=== PATIENT | female | born 1945 | race Asian ===

== ENCOUNTER 2017-09-07 11:36 | Day surgery (SDC) | payer OTHER ==
[2017-09-07 12:42] VITALS: BMI 28.7
[2017-09-07] MEDS ORDERED: PROPOFOL 20 ML ONE (13:11)
[2017-09-07] MEDS ORDERED: LIDOCAINE HCL/PF 2% SDV 5ML VIAL ONE (13:11)
[2017-09-07 13:44] VITALS: TEMP 98.1
[2017-09-07 14:09] VITALS: BP 137/83; PULSE 67
--- NOTE | 2017-09-11 16:08 | PATH ---
Surgical Pathology Report Patient Name: ALEXIS RANDHAWA [facility] Rec. #: [id number] /Age/Gender: 1945 (Age: 72) / F Account: [id number] Location: U-ENDOSCOPY Taken: 09/07/2017 Received: 09/10/2017 Reported: 09/11/2017 Physicians: Adilia Mccoy M.D. Specimen(s) Received A: BX 2ND PORTION DUODENUM AND BULB B: BX ANTRUM Clinical History Abdominal pain, vomiting Postoperative diagnosis: Gastritis Final Diagnosis A. SECOND PORTION DUODENUM AND BULB, BIOPSY: DUODENAL MUCOSA WITH NO PATHOLOGIC FINDINGS. B. ANTRUM, BIOPSY: MILD CHRONIC GASTRITIS. IMMUNOSTAINS NEGATIVE FOR H. PYLORI ORGANISMS. Electronically Signed Wendy Stock M.D. Gross Description A. Received in formalin, labeled "biopsy second portion of duodenum and bulb" are 3 gunn, irregular portions of soft tissue ranging from 0.4-0.5 cm in greatest dimension. The specimens are submitted in toto in one cassette. B. Received in formalin, labeled with the patient's name and indicated on the requisition to be an antrum biopsy, are 2 gunn, irregular portions of soft tissue measuring 0.2 and 0.6 cm. in greatest dimension. The specimens are submitted in toto in one cassette. 09/10/201709/10/2017
== END 2017-09-07 14:40 | disposition home or self-care (01) ==
LOC: JASU-ENDO 11:36
PROVIDERS: ATTEND Internal Medicine Gastroenterology
PROC: 0DB68ZX Excision of Stomach, Via Natural or Artificial Opening Endoscopic, Diagnostic (ICD-10-PCS; 2017-09-07)
PROC: 0DB98ZX Excision of Duodenum, Via Natural or Artificial Opening Endoscopic, Diagnostic (ICD-10-PCS; principal; 2017-09-07 12:45)
DX: K29.70 Gastritis, unspecified, without bleeding (principal); E11.9 Type 2 diabetes mellitus without complications; Z79.84 Long term (current) use of oral hypoglycemic drugs
CPT/HCPCS: 82962; 88305-TC; 88342-TC

== ENCOUNTER 2017-10-29 11:47 | Day surgery (SDC) | payer OTHER ==
[2017-10-26 10:35] VITALS: BMI 28.7
[2017-10-29] MEDS ORDERED: fentaNYL CITRATE 250 MCG/5 ML VIAL ONE (14:57)
[2017-10-29] MEDS ORDERED: ROCURONIUM BROMIDE 50 MG/5 ML VIAL ONE (14:57)
[2017-10-29] MEDS ORDERED: MIDAZOLAM HCL 2 MG/2 ML SINGLE DOSE VIAL ONE (14:58)
[2017-10-29] MEDS ORDERED: PROPOFOL 20 ML ONE (14:58)
[2017-10-29] MEDS ORDERED: LIDOCAINE HCL/PF 2% SDV 5ML VIAL ONE (14:59)
[2017-10-29] MEDS ORDERED: DEXAMETHASONE SOD PHOSPHATE 4 MG/1 ML VIAL ONE (14:59)
[2017-10-29] MEDS ORDERED: VASOPRESSIN 20 UNITS/ML VIAL IV ONE (15:45)
[2017-10-29] MEDS ORDERED: ceFAZolin SODIUM 1 GM VIAL IVPB ONE (16:05)
[2017-10-29] MEDS ORDERED: ceFAZolin SODIUM 1 GM VIAL ONE (16:09)
[2017-10-29] MEDS ORDERED: FUROSEMIDE 40 MG/4 ML INJECTABLE VIAL ONE (16:28)
[2017-10-29] MEDS ORDERED: GLYCOPYRROLATE 0.2 MG/1 ML VIAL ONE (16:51)
[2017-10-29] MEDS ORDERED: NEOSTIGMINE METHYLSULFATE 0.5 MG/ML - 10 ML MDV ONE (16:51)
[2017-10-29] MEDS ORDERED: oxyCODONE HCL 5 MG TABLET PO PRN (17:07)
[2017-10-29] MEDS ORDERED: ONDANSETRON 4 MG/2 ML VIAL IVPUSH PRN (17:07)
[2017-10-29] MEDS ORDERED: LACTATED RINGERS SOLUTION 1,000 ML IV SCH (17:15)
[2017-10-29] MEDS ORDERED: ONDANSETRON 4 MG/2 ML VIAL ONE ×2 (18:25→19:19)
[2017-10-29 19:15] VITALS: TEMP 97.4
[2017-10-29] MEDS ORDERED: ONDANSETRON 4 MG/2 ML VIAL IVPUSH ONE (19:30)
[2017-10-29 20:58] VITALS: BP 146/77; PULSE 89
--- NOTE | 2017-10-30 06:47 | OP ---
DATE OF OPERATION: 10/29/2017 PREOPERATIVE DIAGNOSES: Grade 3 vaginal wall prolapse, grade 3 cystocele. POSTOPERATIVE DIAGNOSES: Grade 3 vaginal wall prolapse, grade 3 cystocele. PROCEDURE PERFORMED: Transvaginal suspension of the vagina bilateral to the prespinous fascia of the iliococcygeus muscle, anterior colporrhaphy, and cystoscopy. PRIMARY SURGEON: Corbin Cruz MD DESCRIPTION OF PROCEDURE: After adequate anesthesia, patient was prepped and draped in dorsal lithotomy position. A dilute solution of Pitressin was injected throughout the entire vaginal epithelium. The back wall of the vagina was well supported. A vertical incision was made over the anterior vaginal wall. Perivesical fascia dissected away, plicated onto itself using 0 Vicryl sutures in circumferential stitch x2 layers. The anterior vaginal wall was then closed using 2-0 Vicryl suture in continuous fashion. A [id number] stitch of 0 PDS was then placed through the vagina into the prespinous fascia of the iliococcygeus muscle, and then back out the vagina and tied. This was done bilaterally. Rectal examination was negative for any foreign bodies. Cystoscopy was performed to note no fibroids in the bladder and fluorescein dye emanating from both ureteral orifices. The bladder was drained. Martin was inserted. The introitus would accommodate the surgeon's 2 fingers easily with no stenosis noted. There was good posterior descent of the vagina through the hollow of the sacrum. Hong [id number]
== END 2017-10-29 21:02 | disposition home or self-care (01) ==
LOC: JASUSAT 11:47 → JASU-SURG 11:47 → EDSTATUS 14:30 → JASUSAT 21:02
PROVIDERS: ATTEND Obstetrics & Gynecology Female Pelvic Medicine and Reconstructive Surgery
PROC: 0JQC0ZZ Repair Pelvic Region Subcutaneous Tissue and Fascia, Open Approach (ICD-10-PCS; 2017-10-29)
PROC: 0TJB8ZZ Inspection of Bladder, Via Natural or Artificial Opening Endoscopic (ICD-10-PCS; 2017-10-29)
PROC: 0USG7ZZ Reposition Vagina, Via Natural or Artificial Opening (ICD-10-PCS; principal; 2017-10-29 14:30)
DX: N81.10 Cystocele, unspecified (principal); E11.9 Type 2 diabetes mellitus without complications; Z79.84 Long term (current) use of oral hypoglycemic drugs
CPT/HCPCS: 82962; 94760

== ENCOUNTER 2019-08-28 09:08 | Inpatient (IN) | payer OTHER ==
--- NOTE | 2019-08-28 09:21 | PDOC ---
Rapid Medical Evaluation Time Seen by Provider: 08/28/19 09:13 Medical Evaluation: Allergies Allergy/AdvReac Type Severity Reaction Status Date / Time influenza virus vaccine, Allergy Verified 10/29/17 12:41 specific [influenza virus vacc,specific] 08/28/19 09:19 I performed a brief in-person evaluation of this patient. Pt is a 74 y/o male who presents to the ED with complaint of lower abdominal pain/suprapubic pain for the last 1 week. She denies any dysuria, frequency, urgency. She does admit to some low back pain. She has a h/o DM, recurrent UTIs, HTN, HLD, hysterectomy. She denies fevers or chills. She had COVID in April and was subsequently tested negative. Pertinent physical exam findings: nontoxic, speaking in full sentences, no acute distress I have ordered the following: labs, saline lock Patient to proceed to ED for further evaluation. 08/28/19 09:21 Discharge Disposition - Diagnosis Abdominal pain - Referrals - Patient Instructions - Post Discharge Activity
--- NOTE | 2019-08-28 09:56 | PDOC ---
History of Present Illness - General Chief Complaint: Pain Stated Complaint: LWR ABD PAIN Time Seen by Provider: 08/28/19 09:13 History Source: Patient Exam Limitations: No Limitations - History of Present Illness Initial Comments: 08/28/19 09:55 HPI 74 YOF with h/o DM, HTN, HLD, RA presenting with lower abdominal pain x 1 week, associated with decreased appetite and nausea. lower abdominal pain is described as "heavy" sensation, radiating to the lower back. worse with movement, improved with rest. with movement, AP increases to 7-8/10. only took tylenol last night, with some relief. no trauma +constipation, last BM yesterday. +flatus. no bloody stools. Denies fever, chills, chest pain, SOB, palpitation, dizziness, weakness, diarrhea, bladder and bowel problems, focal weakness/paresthesias, leg swelling/pain, rash. No sick contacts or travel. No new changes in medications. No suspicious food intake +recent covid 19 infection, in April 2019, recovered. Allergies: None Past Medical History: DM, HTN, HLD PSH: hysterectomy Social history: Lives with family. No tobacco, ETOH or drug use. Meds: as documented in EMR Family history: noncontributory PMD: Magaly Medina MD [Staff Physician] - Review of systems Constitutional: no fevers or chills. No weakness HEENT: no headache or dizziness. No congestion. No visual/hearing disturbances. CVS: no cp or syncope. Resp: no sob. No cough. Gastrointestinal: No vomiting, diarrhea. +abdominal pain and nausea Genitourinary: no urinary sx, hematuria. MUSCULOSKELETAL: No joint pain and swelling. No neck pain. +back pain. SKIN: no redness or skin changes, no discharge, no rash. No wounds. Hematologic: no easy bruising/bleeding. NEUROLOGIC: No headache, dizziness, LOC or altered mental status. No weakness, numbness or tingling. Psych: no anxiety or depression Endo: +diabetes mellitus Allergic/Immunologic: no allergies All other systems reviewed and negative, or as documented in HPI. Physical exam General: Well appearing, awake and alert, NAD. HEENT: NCAT, PERRL, EOMI, clear conjunctiva, anicteric, moist mucus membranes, clear oropharynx, no oral lesions.. Neck: neck supple, FROM Resp: CTAB, normal and even respirations, no respiratory distress CVS: RRR, no murmurs, 2+ peripheral pulses throughout, no peripheral edema Abdomen: soft, nondistended. +LLQ Tenderness,no rebound or guarding. Back: nontender, normal inspection and ROM MSK: no edema, HICKMAN x4, ROM intact. No clubbing or cyanosis. normal bulk and to ne. Extremities: no calf tenderness Neuro: alert, oriented appropriately; no focal neurologic deficits Psych: Calm and cooperative Skin: warm and well perfused, cap refill <2 sec, normal color, no rash or skin discoloration. 08/28/19 09:57 Past History - Medical History Allergies/Adverse Reactions: Allergies Allergy/AdvReac Type Severity Reaction Status Date / Time influenza virus vaccine, Allergy Verified 08/28/19 09:21 specific [influenza virus vacc,specific] Home Medications: Ambulatory Orders Calcium Carbonate/Vitamin D3 [Calcium 600+D Softgel] 1 cap PO DAILY 09/07/17 Cholecalciferol (Vitamin D3) [Vitamin D -] 1,000 unit PO DAILY 09/07/17 Glucosamine HCl/Chondroitin John [Cvs Glucosamine-Chondroitin Cp] 1 cap PO DAILY 09/07/17 Losartan Potassium 100 mg PO DAILY 09/07/17 Mag Carb/Aluminum Hydrox/Algin [Gaviscon Liquid] 30 ml PO Q4H PRN #30 oz 09/07/17 Omega3,5,6,7,9 No.1/[place] Oil [Complete [place] Softgel] 1 each PO DAILY 09/07/17 Ranitidine [Zantac -] 150 mg PO BID #180 tablet 09/07/17 Sitagliptin Phos/Metformin HCl [Janumet Xr 50-1,000 mg Tablet] 1 each PO BID 09/07/17 Solifenacin Succinate [Vesicare -] 5 mg PO DAILY 09/07/17 Atorvastatin Ca [Lipitor] 20 mg PO DAILY 10/26/17 Glyburide 5 mg PO DAILY 10/26/17 Anemia: No Asthma: No Cancer: No Cardiac Disorders: No CVA: No COPD: No CHF: No Dementia: No Diabetes: Yes (NIDDM,DIABETIC NEUROPATHY) GI Disorders: Yes Disorders: Yes (UTI'S) HTN: Yes Hypercholesterolemia: Yes Liver Disease: No Seizures: No Thyroid Disease: No - Surgical History Appendectomy: No Cardiac Surgery: No Cholecystectomy: No Lung Surgery: No Neurologic Surgery: No Orthopedic Surgery: No - Psycho-Social/Smoking History Smoking History: Never smoked Have you smoked in the past 12 months: No Information on smoking cessation initiated: No - Substance Abuse Hx (Audit-C & DAST Scrn) How often the patient has a drink containing alcohol: Never Score: In Men: 4 or > Positive; In Women: 3 or > Positive: 0 Screen Result (Pos requires Nsg. Audit-10AR): Negative In the last yr the pt used illegal drug/Rx for NonMed reason: No Score: Yes response is considered Positive: 0 Screen Result (Positive result requires Nsg. DAST-10): Negative *Physical Exam - Vital Signs Last Vital Signs Temp Pulse Resp BP Pulse Ox 99.6 F 87 17 115/59 L 100 08/28/19 09:18 08/28/19 09:18 08/28/19 09:18 08/28/19 09:18 08/28/19 09:18 ED Treatment Course - LABORATORY CBC & Chemistry Diagram: 08/28/19 09:45 08/28/19 09:45 Medical Decision Making - Medical Decision Making 08/28/19 10:00 Vital Signs Temp Pulse Resp BP Pulse Ox 99.6 F 87 17 115/59 L 100 08/28/19 09:18 08/28/19 09:18 08/28/19 09:18 08/28/19 09:18 08/28/19 09:18 DDx abdominal pain: Renal colic, biliary colic, metabolic/electrolyte derangements. GERD, PUD, esophageal spasm, pancreatitis, hepatitis, constipation, colitis, gastroenteritis, cholecystitis, UTI, pyelonephritis, ileus, SBO, medication side effect, hernia, appendicitis, diverticulitis, mesenteric ischemia. msk strain, mesenteric adenitis, psoas abscess. Laboratory results with mild leukocytosis of 13 K, electrolytes and creatinine are within normal limits. Lactic acidosis 3.0, will give IV fluid hydration and repeat. Does not look septic or toxic at this time. UA with positive nitrites leuk esterase and WBC in the 300s, correlating with acute UTI given her abdominal symptoms. Antibiotics as indicated, follow-up on urine cultures, blood cultures CT a/p to eval for for intra abdominal infection/abscess, perf, obstruction, diverticulitis, given LLQ pain 08/28/19 13:55 CT scan with colitis/acute diverticulitis There is some surrounding inflammatory changes and small free fluid otherwise no gross air or collection or abscess visualized. Close follow-up is recommended Incidental renal cyst and left hepatic lobe cyst. There is some emphysematous changes seen in the lower lung field. also UTI ceftriaxone and flagyl, covers for both UTI and diverticulitis lactic acid is uptrending despite IVF hydration, 3 --> 4 will give the abx, fluid hydration and trend d/w Adam, admit to hospitalist. updated pmd with clinical findings and clinical impressions. admitting to Dr Pineda s/o to Dr Tracy, resident. 08/28/19 15:43 08/28/19 15:45 08/28/19 15:45 08/28/19 16:18 Discharge - Discharge Information Problems reviewed: Yes Clinical Impression/Diagnosis: Acute diverticulitis, UTI (urinary tract infection) Condition: Fair - Admission Yes - Follow up/Referral Referrals: Magaly Medina MD [Primary Care Provider] - - Patient Discharge Instructions - Post Discharge Activity
[2019-08-28] MEDS ORDERED: SODIUM CHLORIDE 0.9% 500 ML INFUS.BAG IV ONE ×3 (10:01→15:46)
[2019-08-28] MEDS ORDERED: ACETAMINOPHEN 1000 MG/100 ML VIAL (NON FORMULARY) IVPB ONE (10:01)
[2019-08-28] MEDS ORDERED: ACETAMINOPHEN INJECTION 100 ML IVPB ONE (10:08)
[2019-08-28 10:13] LABS: BASO % 0.8 % (0-2.0); EOS % 0.3 % (0-4.5); HEMATOCRIT 34.8 % (32.4-45.2); HEMOGLOBIN 11.1 GM/dL (10.7-15.3); LYMPH % 9.2 % (8-40); MCH 28.5 pg (25.7-33.7); MCHC 31.9 g/dl (32.0-36.0); MEAN CELL VOLUME 89.2 fl (80-96); MEAN PLT VOLUME 8.3 fl (7.5-11.1); MONO % 6.1 % (3.8-10.2); NEUT % 83.6 % (42.8-82.8); PLATELET COUNT 205 K/MM3 (134-434); RDW 15.7 % (11.6-15.6)
[2019-08-28 10:32] LABS: EPI CELLS 5 /uL (0-25.1); HYALINE CASTS 4 /uL (0-3.1); PH,URINE 6.5 (5.0-8.0); URINE APPEARANCE CLOUDY; URINE BILIRUBIN NEGATIVE (NEGATIVE); URINE COLOR YELLOW; URINE GLUCOSE (UA) NEGATIVE (NEGATIVE); URINE KETONE NEGATIVE (NEGATIVE); URINE LEUK ESTERASE 2+ (NEGATIVE); URINE NITRITE POSITIVE (NEGATIVE); URINE PROTEIN 1+ (NEGATIVE); URINE RBC 14 /uL (0-23.9); URINE UROBILINOGEN 0.2 mg/dL (0.2-1.0); URINE WBC 339 /uL (0-25.8)
[2019-08-28 10:50] LABS: ALBUMIN 3.6 g/dl (3.4-5.0); BILIRUBIN,TOTAL 0.8 mg/dL (0.2-1); BLOOD UREA NITROGEN 17.1 mg/dL (7-18); CALCIUM 9.3 mg/dL (8.5-10.1); CREATININE 0.9 mg/dL (0.55-1.3); POTASSIUM 4.3 mmol/L (3.5-5.1); TOT PROT 7.7 g/dl (6.4-8.2)
[2019-08-28] MEDS ORDERED: morphine CARPU-JECT 4 MG/1 ML DISP.SYRIN IVPUSH ONE (13:53)
[2019-08-28] MEDS ORDERED: CEFTRIAXONE 1,000 MG in DEXTROSE 5%-WATER - 50 ML IVPB ONE (13:53)
[2019-08-28] MEDS ORDERED: morphine SULFATE 4 MG/ML VIAL ONE (14:12)
[2019-08-28] MEDS ORDERED: CEFTRIAXONE 1 GM/50 ML BAG ONE (14:12)
--- NOTE | 2019-08-28 17:22 | PN ---
Teaching Attending Note Name of Resident: Juana Tracy ATTENDING PHYSICIAN STATEMENT I saw and evaluated the patient. I reviewed the resident's note and discussed the case with the resident. I agree with the resident's findings and plan as documented. SUBJECTIVE: 74 year old female with known history of hysterectomy, UTI, DM type 2, hyep rtension, COVID 19 (05/08), who presents to the ED complaining of left upper and left lower quadrant pain of one week duration not associated with fever, chills. No change in bowel or bladder habits. No change in color of stools or urine. At the ED found to have lactic acid of 4. CT scan shows diverticulitis and diverticulosis. OBJECTIVE: Gen: appears appropriate for stated age; not in any distress HEENTL EOMI, no oral lesions neck; supple CVS: RRR ABD; soft, tender at the LUQ and LLQ, no rebound tenderness, hypoactive bowel sounds ext No edema, feet are warm and dry pick remover; no motor nor sensory deficit ASSESSMENT AND PLAN: 1. Sepsis secondary to acute diverticulitis and UTI - cont w ceftriaxone and flagyl - ID consultation - pain control - NPO and IVF - repeat lactic acid - repeab CBC, BMP in am - close observation. - Low threshold to call surgery if indication arises - follow urine culture 2. DM 2 - accuchecks while NPO - A1c 3. DVT prophylaxis DW Dr Tracy and agree with her management and plans of care.
[2019-08-28] MEDS: SODIUM CHLORIDE 1,000 ML IV SCH ×2 (18:02→23:31)
--- NOTE | 2019-08-28 19:33 | HP ---
CHIEF COMPLAINT:abdominal pain PCP: HISTORY OF PRESENT ILLNESS: 74 yo F PMH RA, HTN, DM, HLD presents to ED for lower abdominal pain for 1 week, worsening the past 2 days. pt states that pain is throbbing, improved when she leans forward. she states that the pain is so bad she has been unable to sleep for 2 days. she states she has decreased appetite and eating less due to pain. she endorses 1 day of nausea .states she is normally constipated but had BM yesterday. she denies hematochezia. she denies pain on defecation. she denies fevers, chills. pt states that last colonoscopy was wnl [address] Mccoy ER course was notable for: (1)CT Abdomen/Pelvis : diverticulitis (2)IVF (3)Ceftriaxone/flagyl PAST MEDICAL HISTORY: see above PAST SURGICAL HISTORY:hysterectomy FH: Father with stomach cancer Social History: Smoking:denies Alcohol:denies Drugs: denies Allergies influenza virus vaccine, specific [influenza virus vacc,specific] Allergy (Verified 08/28/19 09:21) HOME MEDICATIONS: Home Medications Medication Instructions Recorded Losartan Potassium 100 mg PO DAILY 09/07/17 Omega3,5,6,7,9 No.1/[place] Oil 1 each PO DAILY 09/07/17 [Complete [place] Softgel] Sitagliptin Phos/Metformin HCl 1 each PO BID 09/07/17 [Janumet Xr 50-1,000 mg Tablet] Atorvastatin Ca [Lipitor] 20 mg PO DAILY 10/26/17 Glyburide 5 mg PO DAILY 10/26/17 REVIEW OF SYSTEMS CONSTITUTIONAL: Present: loss of appetite Absent: fever, chills, diaphoresis, generalized weakness, malaise, weight change HEENT: Absent: rhinorrhea, nasal congestion, throat pain, throat swelling, difficulty swallowing, mouth swelling, ear pain, eye pain, visual changes CARDIOVASCULAR: Absent: chest pain, syncope, palpitations, irregular heart rate, l ightheadedness, peripheral edema RESPIRATORY: Absent: cough, shortness of breath, dyspnea with exertion, orthopnea, wheezing, stridor, hemoptysis GASTROINTESTINAL: Present: abdominal pain, nausea, constipation Absent: abdominal distension, vomiting, diarrhea, melena, hematochezia GENITOURINARY: Absent: dysuria, frequency, urgency, hesitancy, hematuria, flank pain, genital pain MUSCULOSKELETAL: Absent: myalgia, arthralgia, joint swelling, back pain, neck pain SKIN: Absent: rash, itching, pallor HEMATOLOGIC/IMMUNOLOGIC: Absent: easy bleeding, easy bruising, lymphadenopathy, frequent infections ENDOCRINE: Absent: unexplained weight gain, unexplained weight loss, heat intolerance, cold intolerance NEUROLOGIC: Absent: headache, focal weakness or paresthesias, dizziness, unsteady gait, s eizure, mental status changes, bladder or bowel incontinence PSYCHIATRIC: Absent: anxiety, depression, suicidal or homicidal ideation, hallucinations. PHYSICAL EXAMINATION Vital Signs - 24 hr 08/28/19 08/28/19 09:18 14:45 Temperature 99.6 F 98.6 F Pulse Rate 87 Pulse Rate [ 78 Right Radial] Respiratory 17 18 Rate Blood Pressure 115/59 L Blood Pressure 116/57 L [Right Arm] O2 Sat by Pulse 100 99 Oximetry (%) GENERAL: Awake, alert, and fully oriented, in no acute distress. HEAD: Normal with no signs of trauma. NECK: no JVD LUNGS: Breath sounds equal, clear to auscultation bilaterally. No wheezes, and no crackles. No accessory muscle use. HEART: Regular rate and rhythm, normal S1 and S2 without murmur ABDOMEN: Soft, TTP at LUQ and LLQ, not distended, normoactive bowel sounds, no guarding, no rebound, No hepatomegaly or splenomegaly. MUSCULOSKELETAL: Normal range of motion at all joints. No bony deformities or tenderness. No CVA tenderness. UPPER EXTREMITIES: 2+ pulses, warm, well-perfused. No cyanosis. No clubbing. No peripheral edema. LOWER EXTREMITIES: 2+ pulses, warm, well-perfused. No calf tenderness. No peripheral edema. NEUROLOGICAL: Cranial nerves II-XII intact. Normal speech. Normal gait. Laboratory Last Values WBC 13.0 K/mm3 (4.0-10.0) H 08/28/19 09:45 RBC 3.90 M/mm3 (3.60-5.2) 08/28/19 09:45 Hgb 11.1 GM/dL (10.7-15.3) 08/28/19 09:45 Hct 34.8 % (32.4-45.2) 08/28/19 09:45 MCV 89.2 fl (80-96) 08/28/19 09:45 MCH 28.5 pg (25.7-33.7) 08/28/19 09:45 MCHC 31.9 g/dl (32.0-36.0) L 08/28/19 09:45 RDW 15.7 % (11.6-15.6) H D 08/28/19 09:45 Plt Count 205 K/MM3 (134-434) 08/28/19 09:45 MPV 8.3 fl (7.5-11.1) 08/28/19 09:45 Absolute Neuts (auto) 10.9 K/mm3 (1.5-8.0) H 08/28/19 09:45 Neutrophils % 83.6 % (42.8-82.8) H D 08/28/19 09:45 Lymphocytes % 9.2 % (8-40) D 08/28/19 09:45 Monocytes % 6.1 % (3.8-10.2) 08/28/19 09:45 Eosinophils % 0.3 % (0-4.5) 08/28/19 09:45 Basophils % 0.8 % (0-2.0) 08/28/19 09:45 Nucleated RBC % 0 % (0-0) 08/28/19 09:45 Sodium 136 mmol/L (136-145) 08/28/19 09:45 Potassium 4.3 mmol/L (3.5-5.1) 08/28/19 09:45 Chloride 102 mmol/L (98-107) 08/28/19 09:45 Carbon Dioxide 23 mmol/L (21-32) 08/28/19 09:45 Anion Gap 11 MMOL/L (8-16) 08/28/19 09:45 BUN 17.1 mg/dL (7-18) 08/28/19 09:45 Creatinine 0.9 mg/dL (0.55-1.3) 08/28/19 09:45 Est GFR (CKD-EPI)AfAm 73.52 08/28/19 09:45 Est GFR (CKD-EPI)NonAf 63.43 08/28/19 09:45 Random Glucose 242 mg/dL (74-106) H 08/28/19 09:45 Lactic Acid 4.0 mmol/L (0.4-2.0) H* 08/28/19 14:06 Calcium 9.3 mg/dL (8.5-10.1) 08/28/19 09:45 Total Bilirubin 0.8 mg/dL (0.2-1) 08/28/19 09:45 AST 13 U/L (15-37) L 08/28/19 09:45 ALT 19 U/L (13-61) 08/28/19 09:45 Alkaline Phosphatase 53 U/L (45-117) 08/28/19 09:45 Total Protein 7.7 g/dl (6.4-8.2) 08/28/19 09:45 Albumin 3.6 g/dl (3.4-5.0) 08/28/19 09:45 Lipase 160 U/L (73-393) 08/28/19 09:45 Urine Color Yellow 08/28/19 09:45 Urine Appearance Cloudy 08/28/19 09:45 Urine pH 6.5 (5.0-8.0) 08/28/19 09:45 Ur Specific [place] 1.020 (1.010-1.035) 08/28/19 09:45 Urine Protein 1+ (NEGATIVE) H 08/28/19 09:45 Urine Glucose (UA) Negative (NEGATIVE) 08/28/19 09:45 Urine Ketones Negative (NEGATIVE) 08/28/19 09:45 Urine Blood Negative (NEGATIVE) 08/28/19 09:45 Urine Nitrite Positive (NEGATIVE) H 08/28/19 09:45 Urine Bilirubin Negative (NEGATIVE) 08/28/19 09:45 Urine Urobilinogen 0.2 mg/dL (0.2-1.0) 08/28/19 09:45 Ur Leukocyte Esterase 2+ (NEGATIVE) H 08/28/19 09:45 Urine WBC (Auto) 339 /uL (0-25.8) 08/28/19 09:45 Urine RBC (Auto) 14 /uL (0-23.9) 08/28/19 09:45 Urine Casts (Auto) 4 /uL (0-3.1) 08/28/19 09:45 U Epithel Cells (Auto) 5 /uL (0-25.1) 08/28/19 09:45 Urine Bacteria (Auto) >10,000 /uL (0-1359) 08/28/19 09:45 ASSESSMENT/PLAN: 74 yo F PMH RA, HTN, DM, HLD presents to ED for lower abdominal pain for 1 week, worsening the past 2 days. Pt is admitted for diverticulitis Diverticulitis - CT A/P reviewed - c/w IVF - C/w ceftriaxone and flagyl - cont to trend lactate . went from 3--> 4 - NPO - tylenol - pending cx DM - ISS, BGM - will get A1C HTN - c/w home losartan HLD - c/w statin F/E/N - cont IVF @100cc - monitor lytes - NPO DVTppx: lovenox Dispo: admit to med/surg ATTENDING PHYSICIAN STATEMENT I saw and evaluated the patient. I reviewed the resident's note and discussed the case with the resident. I agree with the resident's findings and plan as documented. SUBJECTIVE: OBJECTIVE: ASSESSMENT AND PLAN:
[2019-08-28] MEDS ORDERED: ATORVASTATIN CA 20 MG TABLET (FP) ONE (22:17)
[2019-08-28] MEDS: ATORVASTATIN CA 20 MG TABLET (FP) PO SCH (22:22)
[2019-08-28 23:30] VITALS: BMI 27.8
[2019-08-29] MEDS ORDERED: ACETAMINOPHEN 325 MG TABLET (FP) PO ONE (00:46)
[2019-08-29] MEDS: INSULIN SLIDING SCALE (NOVOLOG) 1 VIAL SQ SCH ×4 (01:20→21:14)
[2019-08-29] MEDS ORDERED: INSULIN SLIDING SCALE (NOVOLOG) 1 VIAL SQ SCH (07:00)
--- NOTE | 2019-08-29 07:36 | PN ---
Teaching Attending Note Name of Resident: Reba Velazquez ATTENDING PHYSICIAN STATEMENT I saw and evaluated the patient. I reviewed the resident's note and discussed the case with the resident. I agree with the resident's findings and plan as documented. SUBJECTIVE: Patient remained afebrile no complaint worsening pain or vomiting OBJECTIVE: Vital Signs Temperature 99.0 F 08/29/19 06:00 Pulse Rate 89 08/29/19 06:00 Respiratory Rate 18 08/29/19 06:00 Blood Pressure 137/77 08/29/19 06:00 O2 Sat by Pulse Oximetry (%) 96 08/28/19 22:55 General: Elderly woman, comfortable, not in distress HEENT mucous membranes moist, mild anemia, no jaundice, PERRLA, no nystagmus Neck: No JVD, supple, no bruit, thyroid palpably normal, normal carotid pulsations. Chest: Nontender, clear to auscultation bilaterally. CVS: S1-S2 regular no murmur/gallop/rub Abdomen: Non-distended, soft, left lower quadrant tenderness with rebound ,bowel sounds present. Extremities: No edema., No Calf tenderness, pulses present [employer]ER [employer] REPAIRER: AO X3 , no gross motor sensory deficit. 08/29/19 08:00 08/29/19 08:00 CT abd: Acute diverticullitis Active Medications Atorvastatin Calcium (Lipitor -) 20 mg PO HS STEPHANIE Last Admin: 08/28/19 22:22 Dose: 20 mg Documented by: Enoxaparin Sodium (Lovenox -) 40 mg SQ DAILY STEPHANIE Sodium Chloride (Normal Saline -) 1,000 mls @ 100 mls/hr IV ASDIR STEPHANIE Last Admin: 08/28/19 23:31 Dose: 100 mls/hr Documented by: Ceftriaxone Sodium 2 gm/ (Dextrose) 100 mls @ 100 mls/hr IVPB DAILY STEPHANIE Metronidazole (Flagyl 500mg Premixed Ivpb -) 500 mg in 100 mls @ 100 mls/hr IVPB Q8H-IV STEPHANIE Last Admin: 08/29/19 01:20 Dose: 100 mls/hr Documented by: Insulin Aspart (Novolog Vial Sliding Scale -) 1 vial SQ ACHS STEPHANIE; Protocol Last Admin: 08/29/19 01:20 Dose: 2 units Documented by: Losartan Potassium (Cozaar -) 100 mg PO DAILY STEPHANIE ASSESSMENT AND PLAN:74 year old female with history of type 2 diabetes mellitus, hypertension, recovered from COVID in April 2018 presented with left sided abdominal pain for a week, hysterectomy, not associated with fever, chills. No change in bowel or bladder habits. No change in color of stools or urine. In the ED work-up shows elevated white blood cell count, elevated lactic acid to [address] scan abdomen shows diverticulitis and diverticulosis. Active issues: Acute uncomplicated diverticulitis: Able to pass flatus, no nausea vomiting will start clear liquid advance as tolerates, continue ceftriaxone metoprolol Hypertension: Well-controlled continue all home medication. UTI: Patient is already on ceftriaxone we will follow-up urine culture. Elevated lactic acid: Most likely due to dehydration and metformin continue p.o. hydration follow-up lactic acid level. Type 2 diabetes mellitus: Hold p.o. medications follow-up Accu-Cheks and will add basal dose of insulin as indicated. hypercholesterolemia: continue atorvastatin. DVT prophylaxis Discussed with the resident
[2019-08-29] MEDS ORDERED: DEXTROSE 5%-WATER 100 ML IVPB ONE (09:12)
[2019-08-29 09:35] LABS: BASO % 0.6 % (0-2.0); EOS % 3.5 % (0-4.5); HEMOGLOBIN 9.9 GM/dL (10.7-15.3); LYMPH % 16.8 % (8-40); MCH 29.3 pg (25.7-33.7); MCHC 32.9 g/dl (32.0-36.0); MEAN CELL VOLUME 89.1 fl (80-96); MEAN PLT VOLUME 8.2 fl (7.5-11.1); MONO % 8.7 % (3.8-10.2); NEUT % 70.4 % (42.8-82.8); PLATELET COUNT 183 K/MM3 (134-434); RBC 3.37 M/mm3 (3.60-5.2); RDW 15.7 % (11.6-15.6); WHITE BLOOD COUNT 9.6 K/mm3 (4.0-10.0)
[2019-08-29] MEDS: ENOXAPARIN NA (PORCINE) 40 MG/0.4 ML DISP.SYRIN SQ SCH (09:41)
[2019-08-29] MEDS: CEFTRIAXONE 2 GM in DEXTROSE 5%-WATER 100 ML IVPB SCH (09:41)
[2019-08-29] MEDS: LOSARTAN POTASSIUM 50 MG TABLET (FP) PO SCH (09:41)
[2019-08-29 10:04] LABS: ALBUMIN 2.8 g/dl (3.4-5.0); BILIRUBIN,TOTAL 0.7 mg/dL (0.2-1); BLOOD UREA NITROGEN 9.5 mg/dL (7-18); CALCIUM 8.5 mg/dL (8.5-10.1); CREATININE 0.7 mg/dL (0.55-1.3); MAGNESIUM 1.9 mg/dL (1.8-2.4); PHOSPHOROUS 2.7 mg/dL (2.5-4.9); POTASSIUM 4.1 mmol/L (3.5-5.1); TOT PROT 6.2 g/dl (6.4-8.2)
[2019-08-29] MEDS ORDERED: INSULIN (NOVOLOG) ASPART 100 UNITS/ML 10ML VIAL ONE (11:14)
--- NOTE | 2019-08-29 13:19 | PN ---
Physical Exam: SUBJECTIVE:Patient seen and examined at bedside this morning, Patient still reports mild abdominal pain, but reduced markedly from the time of admission. No acute events overnight. OBJECTIVE: Vital Signs Temperature 98.3 F 08/29/19 09:35 Pulse Rate 76 08/29/19 09:25 Respiratory Rate 20 08/29/19 09:25 Blood Pressure 135/58 L 08/29/19 09:25 O2 Sat by Pulse Oximetry (%) 96 08/28/19 22:55 GENERAL: The patient is awake, alert, and fully oriented, in no acute distress. HEAD: Normal with no signs of trauma. EYES: PERRLA, EOMI, sclera anicteric, conjunctiva clear. ENT: moist mucous membranes. NECK: supple. LUNGS: Breath sounds equal, clear to auscultation bilaterally HEART: Regular rate and rhythm, S1, S2 ABDOMEN: Soft, +RLQ/LLQ tenderness, nondistended, normoactive bowel sounds. EXTREMITIES: 2+ pulses, warm, well-perfused, no edema. SKIN: Warm, dry, normal turgor Laboratory Results - last 24 hr 08/28/19 08/28/19 08/29/19 14:06 23:22 00:50 WBC RBC Hgb Hct MCV MCH MCHC RDW Plt Count MPV Absolute Neuts (auto) Neutrophils % Lymphocytes % Monocytes % Eosinophils % Basophils % Nucleated RBC % Sodium Potassium Chloride Carbon Dioxide Anion Gap BUN Creatinine Est GFR (CKD-EPI)AfAm Est GFR (CKD-EPI)NonAf POC Glucometer 180 Random Glucose Hemoglobin A1c % Lactic Acid 4.0 H* 1.6 Calcium Phosphorus Magnesium Total Bilirubin AST ALT Alkaline Phosphatase Total Protein Albumin 08/29/19 08/29/19 08/29/19 06:30 08:00 08:00 WBC 9.6 RBC 3.37 L Hgb 9.9 L Hct 30.0 L MCV 89.1 MCH 29.3 MCHC 32.9 RDW 15.7 H Plt Count 183 MPV 8.2 Absolute Neuts (auto) 6.7 Neutrophils % 70.4 Lymphocytes % 16.8 D Monocytes % 8.7 Eosinophils % 3.5 D Basophils % 0.6 Nucleated RBC % 0 Sodium 143 Potassium 4.1 Chloride 112 H Carbon Dioxide 24 Anion Gap 7 L BUN 9.5 Creatinine 0.7 Est GFR (CKD-EPI)AfAm 99.62 Est GFR (CKD-EPI)NonAf 85.95 POC Glucometer 101 Random Glucose 122 H Hemoglobin A1c % Lactic Acid Calcium 8.5 Phosphorus 2.7 Magnesium 1.9 Total Bilirubin 0.7 AST 12 L ALT 16 Alkaline Phosphatase 42 L Total Protein 6.2 L Albumin 2.8 L 08/29/19 08/29/19 08:00 11:37 WBC RBC Hgb Hct MCV MCH MCHC RDW Plt Count MPV Absolute Neuts (auto) Neutrophils % Lymphocytes % Monocytes % Eosinophils % Basophils % Nucleated RBC % Sodium Potassium Chloride Carbon Dioxide Anion Gap BUN Creatinine Est GFR (CKD-EPI)AfAm Est GFR (CKD-EPI)NonAf POC Glucometer 121 Random Glucose Hemoglobin A1c % 8.3 H Lactic Acid Calcium Phosphorus Magnesium Total Bilirubin AST ALT Alkaline Phosphatase Total Protein Albumin Active Medications Generic Name Dose Route Start Last Admin Trade Name Freq PRN Reason Stop Dose Admin Atorvastatin Calcium 20 mg 08/28/19 22:00 08/28/19 22:22 Lipitor - PO 20 mg HS STEPHANIE Administration Enoxaparin Sodium 40 mg 08/29/19 10:00 08/29/19 09:41 Lovenox - SQ 40 mg DAILY STEPHANIE Administration Sodium Chloride 1,000 mls @ 100 mls/hr 08/28/19 17:15 08/29/19 09:04 Normal Saline - IV 100 mls/hr ASDIR STEPHANIE Administration Ceftriaxone Sodium 2 gm/ 100 mls @ 100 mls/hr 08/29/19 10:00 08/29/19 09:41 Dextrose IVPB 100 mls/hr DAILY STEPHANIE Administration Metronidazole 500 mg in 100 mls @ 100 mls/hr 08/28/19 18:00 08/29/19 10:47 Flagyl 500mg Premixed Ivpb - IVPB 100 mls/hr Q8H-IV STEPHANIE Administration Insulin Aspart 1 vial 08/29/19 01:00 08/29/19 11:39 Novolog Vial Sliding Scale - SQ Not Given ACHS STEPHANIE Protocol Losartan Potassium 100 mg 08/29/19 10:00 08/29/19 09:41 Cozaar - PO 100 mg DAILY STEPHANIE Administration ASSESSMENT/PLAN: Patient is a 74 year old female with past medical history of IDDM, recurrent U TI, covid in April, HTN, HLD, RA and hysterectomy presented to the ED with upper to lower abdominal pain for 1 week, decreased appetite and nausea. #Sepsis 2/2 diverticulitis/diverticulosis -Abd CT impression: diverticulosis with colitis/acute diverticulitis involving the sigmoid colon, with surrounding fat stranding -Lactate was 4, now 1.6 -Given 1 dose of flagyl/rocephin in the ED on 08/27 -Rocephin 2 gm and flagyl 500 mg daily -Urine cx - non-lactose fermenting Gram negative -Blood cx pending -Leukocytosis resolved -Covid pending #Poorly controlled IDDM -ISS -BGM ACHS -A1C 8.3 #HTN -Losartan 100 mg QD #UTI -UCx Non-lactose fermenting gram negative ->100,000 CFU/ml -On IV Ceftriaxone #HLD -On home med, atorvastatin #FEN -Not on standing fluids (given 1.1L in the ED) -routine bmp monitoring -Was NPO from yesterday - advance to clear liquid diet #DVT prophylaxis -Lovenox 40 mg daily #Disposition -Continue to monitor on med/surg floor Visit type - Emergency Visit Emergency Visit: Yes ED Registration Date: 08/28/19 Care time: The patient presented to the Emergency Department on the above date and was hospitalized for further evaluation of their emergent condition. - New Patient This patient is new to me today: No - Critical Care Critical Care patient: No ATTENDING PHYSICIAN STATEMENT I saw and evaluated the patient. I reviewed the resident's note and discussed the case with the resident. I agree with the resident's findings and plan as documented. SUBJECTIVE: OBJECTIVE: ASSESSMENT AND PLAN:
--- NOTE | 2019-08-29 13:41 | EKG ---
Test Reason : Blood Pressure : / mmHG Vent. Rate : 091 BPM Atrial Rate : 091 BPM P-R Int : 168 ms QRS Dur : 082 ms QT Int : 358 ms P-R-T Axes : 066 044 054 degrees QTc Int : 440 ms NORMAL SINUS RHYTHM WHEN COMPARED WITH ECG OF 03-JUL-2014 15:37, NO SIGNIFICANT CHANGE WAS FOUND Confirmed by ADRIANA MOLINA MD ([id number]) on 08/29/2019 1:40:59 PM Referred By: Confirmed By:ADRIANA MOLINA MD
[2019-08-29] MEDS: SODIUM CHLORIDE 1,000 ML IV SCH ×2 (14:30→17:15)
[2019-08-29] MEDS ORDERED: ACETAMINOPHEN 1000 MG/100 ML VIAL (NON FORMULARY) IVPB PRN (16:42)
[2019-08-29] MEDS: ATORVASTATIN CA 20 MG TABLET (FP) PO SCH (21:16)
[2019-08-30] MEDS: SODIUM CHLORIDE 1,000 ML IV SCH ×3 (01:51→21:38)
[2019-08-30] MEDS: INSULIN SLIDING SCALE (NOVOLOG) 1 VIAL SQ SCH ×5 (06:03→21:40)
[2019-08-30 07:53] LABS: BASO % 0.9 % (0-2.0); EOS % 6.4 % (0-4.5); HEMOGLOBIN 9.3 GM/dL (10.7-15.3); LYMPH % 20.1 % (8-40); MCH 28.7 pg (25.7-33.7); MCHC 32.2 g/dl (32.0-36.0); MEAN CELL VOLUME 89.1 fl (80-96); MEAN PLT VOLUME 8.1 fl (7.5-11.1); MONO % 8.3 % (3.8-10.2); NEUT % 64.3 % (42.8-82.8); PLATELET COUNT 186 K/MM3 (134-434); RBC 3.25 M/mm3 (3.60-5.2); RDW 15.5 % (11.6-15.6); WHITE BLOOD COUNT 6.3 K/mm3 (4.0-10.0)
--- NOTE | 2019-08-30 08:05 | PN ---
Progress Note, Physician Chief Complaint: Patient is feeling improved remained afebrile less abdominal pain History of Present Illness: 74-year-old female history of hypertension, type 2 diabetes mellitus, presented with left upper quadrant pain work-up shows UTI and acute diverticulitis improving on IV antibiotic. Urine culture grew ESBL E. coli, patient is tolerating p.o. - Current Medication List Current Medications: Active Medications Active Medications Acetaminophen (Ofirmev Injection -) 1,000 mg IVPB Q6H PRN PRN Reason: PAIN LEVEL 7 - 10 Stop: 08/30/19 16:42 Last Admin: 08/29/19 17:34 Dose: 1,000 mg Documented by: Atorvastatin Calcium (Lipitor -) 20 mg PO HS [facility] Last Admin: 08/29/19 21:16 Dose: 20 mg Documented by: Enoxaparin Sodium (Lovenox -) 40 mg SQ DAILY [facility] Last Admin: 08/30/19 09:51 Dose: 40 mg Documented by: Sodium Chloride (Normal Saline -) 1,000 mls @ 100 mls/hr IV ASDIR [facility] Last Admin: 08/30/19 01:51 Dose: 100 mls/hr Documented by: Metronidazole (Flagyl 500mg Premixed Ivpb -) 500 mg in 100 mls @ 100 mls/hr IVPB Q8H-IV STEPHANIE Last Admin: 08/30/19 09:51 Dose: 100 mls/hr Documented by: Ertapenem 1 gm/ Sodium (Chloride) 50 mls @ 100 mls/hr IVPB DAILY [facility] Insulin Aspart (Novolog Vial Sliding Scale -) 1 vial SQ ACHS [facility]; Protocol Last Admin: 08/30/19 08:28 Dose: Not Given Documented by: Losartan Potassium (Cozaar -) 100 mg PO DAILY [facility] Last Admin: 08/30/19 09:51 Dose: 100 mg Documented by: - Objective Vital Signs: Temperature 98.0 F 08/30/19 06:00 Pulse Rate 77 08/30/19 06:00 Respiratory Rate 18 08/30/19 06:00 Blood Pressure 143/79 08/30/19 06:00 O2 Sat by Pulse Oximetry (%) 94 L 08/29/19 21:00 General: Elderly woman, comfortable, not in distress HEENT mucous membranes moist, mild anemia, no jaundice, PERRLA, no nystagmus Neck: No JVD, supple, no bruit, thyroid palpably normal, normal carotid pulsations. Chest: Nontender, clear to auscultation bilaterally. CVS: S1-S2 regular no murmur/gallop/rub Abdomen: Non-distended, soft, mild left lower quadrant tenderness no rebound ,bowel sounds present. 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 Labs: CBC, BMP 08/30/19 07:25 08/30/19 07:25 Urine culture: ESBL E. coli - ....Imaging Cat Scan: Report Reviewed (Diverticulosis, diverticulitis/colitis no abscess formation) Assessment/Plan ASSESSMENT AND PLAN: 74-year-old female history of hypertension type 2 diabetes mellitus presented with nausea vomiting left lower quadrant pain work-up shows UTI and acute diverticulitis, improving on IV antibiotic, patient urine culture grew ESBL E. coli Active issues: 1.Acute uncomplicated diverticulitis: Able to pass flatus, no nausea vomiting will start clear liquid advance as tolerates, will DC ceftriaxone and metronidazole, switched to ertapenem for ESBL E. coli, ertapenem has good anaerobic coverage and no indication for metronidazole 2. Hypertension: Well-controlled continue all home medication. 3. UTI with sepsis: Urine culture grew E. coli, DC ceftriaxone continue ertapenem 1 g daily. 4. Type 2 diabetes mellitus: Hold p.o. medications follow-up Accu-Cheks and will add basal dose of insulin as indicated. hypercholesterolemia: continue atorvastatin. DVT prophylaxis
[2019-08-30 08:17] LABS: ALBUMIN 2.7 g/dl (3.4-5.0); BILIRUBIN,TOTAL 0.4 mg/dL (0.2-1); CALCIUM 8.4 mg/dL (8.5-10.1); CREATININE 0.7 mg/dL (0.55-1.3); MAGNESIUM 1.8 mg/dL (1.8-2.4); PHOSPHOROUS 2.8 mg/dL (2.5-4.9); TOT PROT 5.9 g/dl (6.4-8.2)
[2019-08-30] MEDS ORDERED: DEXTROSE 5%-WATER 100 ML IVPB ONE ×2 (09:11→16:00)
[2019-08-30] MEDS: CEFTRIAXONE 2 GM in DEXTROSE 5%-WATER 100 ML IVPB SCH (09:50)
[2019-08-30] MEDS: LOSARTAN POTASSIUM 50 MG TABLET (FP) PO SCH (09:51)
[2019-08-30] MEDS: ENOXAPARIN NA (PORCINE) 40 MG/0.4 ML DISP.SYRIN SQ SCH (09:51)
[2019-08-30] MEDS ORDERED: ERTAPENEM SODIUM 1 GM in SODIUM CHLORIDE 50 ML IVPB SCH (11:15)
[2019-08-30] MEDS ORDERED: MEROPENEM 1 GM VIAL (RESTRICTED TO ID) IVPB ONE (16:00)
--- NOTE | 2019-08-30 16:03 | CON.ID ---
Consult Consult Specialty:: infectious diseases Referred by:: Reason for Consultation:: diverticulitis/esbl - History of Present Illness Chief Complaint: abd pain History of Present Illness: 74 year old female with known history of hysterectomy, UTI, DM type 2, hyeprtension, COVID 19 (05/08), who presents to the ED complaining of left upper and left lower quadrant pain of one week duration not associated with fever, chi lls. No change in bowel or bladder habits. No change in color of stools or urine. At the ED found to have lactic acid of 4. CT scan shows diverticulitis and diverticulosis. patient was started on flagyl and ceftriaxone work up also found that the patient has esbl - History Source History Provided By: Patient Limitations to Obtaining History: No Limitations - Past Medical History ...: No - Alcohol/Substance Use Hx Alcohol Use: No - Smoking History Smoking history: Never smoked Have you smoked in the past 12 months: No Home Medications - Allergies Allergies/Adverse Reactions: Allergies Allergy/AdvReac Type Severity Reaction Status Date / Time influenza virus vaccine, Allergy Verified 08/28/19 09:21 specific [influenza virus vacc,specific] - Home Medications Home Medications: Ambulatory Orders Losartan Potassium 100 mg PO DAILY 09/07/17 Omega3,5,6,7,9 No.1/[place] Oil [Complete [place] Softgel] 1 each PO DAILY 09/07/17 Sitagliptin Phos/Metformin HCl [Janumet Xr 50-1,000 mg Tablet] 1 each PO BID 09/07/17 Atorvastatin Ca [Lipitor] 20 mg PO DAILY 10/26/17 Glyburide 5 mg PO DAILY 10/26/17 Aspirin [ASA -] 81 mg PO DAILY 08/28/19 Review of Systems - Review of Systems Constitutional: reports: No Symptoms Eyes: reports: No Symptoms HENT: reports: No Symptoms Neck: reports: No Symptoms Cardiovascular: reports: No Symptoms Respiratory: reports: No Symptoms Gastrointestinal: reports: Abdominal Pain Genitourinary: reports: No Symptoms Musculoskeletal: reports: No Symptoms Integumentary: reports: No Symptoms Neurological: reports: No Symptoms Endocrine: reports: No Symptoms Hematology/Lymphatic: reports: No Symptoms Psychiatric: reports: No Symptoms Physical Exam Vital Signs: Vital Signs Temperature 98 F 08/30/19 10:12 Pulse Rate 80 08/30/19 10:12 Respiratory Rate 18 08/30/19 10:12 Blood Pressure 151/94 08/30/19 10:12 O2 Sat by Pulse Oximetry (%) 94 L 08/30/19 09:00 Constitutional: Yes: Well Nourished, Calm, Mild Distress Cardiovascular: Yes: S1, S2 Respiratory: Yes: Regular, CTA Bilaterally Gastrointestinal: Yes: Soft, Tenderness (left lower quadrant) Musculoskeletal: Yes: WNL Extremities: Yes: WNL Neurological: Yes: Alert, Oriented Psychiatric: Yes: Alert, Oriented Labs: CBC, BMP 08/30/19 07:25 08/30/19 07:25 Imaging - Results Cat Scan: Report Reviewed, Image Reviewed Assessment/Plan 74 year old female with past medical history of IDDM, recurrent UTI, covid in April, HTN, HLD, RA and hysterectomy presented to the ED with upper to lower abdominal pain for 1 week, decreased appetite and nausea. sepsis diverticulitis dm htn uti plan will chnge abx to meropenam npo monitor might hae to repeat ct scan
[2019-08-30] MEDS: MEROPENEM 1 GM in DEXTROSE 5%-WATER 100 ML IVPB SCH (16:08)
[2019-08-30] MEDS ORDERED: INSULIN (NOVOLOG) ASPART 100 UNITS/ML 10ML VIAL ONE (21:23)
[2019-08-30] MEDS: ATORVASTATIN CA 20 MG TABLET (FP) PO SCH (21:39)
[2019-08-31] MEDS: MEROPENEM 1 GM in DEXTROSE 5%-WATER 100 ML IVPB SCH ×3 (02:16→17:11)
[2019-08-31] MEDS: SODIUM CHLORIDE 1,000 ML IV SCH ×2 (05:48→16:30)
[2019-08-31] MEDS: INSULIN SLIDING SCALE (NOVOLOG) 1 VIAL SQ SCH ×4 (06:20→21:40)
--- NOTE | 2019-08-31 08:24 | PN ---
Progress Note, Physician Chief Complaint: Patient is feeling improved remained afebrile less abdominal pain History of Present Illness: 74-year-old female history of hypertension, type 2 diabetes mellitus, presented with left upper quadrant pain work-up shows UTI and acute diverticulitis improving on IV antibiotic. Urine culture grew ESBL E. coli, patient is tolerating p.o. - Current Medication List Current Medications: Active Medications Atorvastatin Calcium (Lipitor -) 20 mg PO HS [facility] Last Admin: 08/30/19 21:39 Dose: 20 mg Documented by: Enoxaparin Sodium (Lovenox -) 40 mg SQ DAILY [facility] Last Admin: 08/30/19 09:51 Dose: 40 mg Documented by: Sodium Chloride (Normal Saline -) 1,000 mls @ 100 mls/hr IV ASDIR [facility] Last Admin: 08/31/19 05:48 Dose: 100 mls/hr Documented by: Meropenem 1 gm/ Dextrose 100 mls @ 200 mls/hr IVPB Q8H-IV [facility] Last Admin: 08/31/19 02:16 Dose: 200 mls/hr Documented by: Insulin Aspart (Novolog Vial Sliding Scale -) 1 vial SQ ACHS [facility]; Protocol Last Admin: 08/31/19 06:20 Dose: Not Given Documented by: Losartan Potassium (Cozaar -) 100 mg PO DAILY [facility] Last Admin: 08/30/19 09:51 Dose: 100 mg Documented by: - Objective Vital Signs: Vital Signs Temperature 98.8 F 08/31/19 06:00 Pulse Rate 69 08/31/19 06:00 Respiratory Rate 18 08/31/19 06:00 Blood Pressure 149/75 08/31/19 06:00 O2 Sat by Pulse Oximetry (%) 98 08/30/19 21:00 General: Elderly woman, comfortable, not in distress HEENT mucous membranes moist, mild anemia, no jaundice, PERRLA, no nystagmus Neck: No JVD, supple, no bruit, thyroid palpably normal, normal carotid pulsations. Chest: Nontender, clear to auscultation bilaterally. CVS: S1-S2 regular no murmur/gallop/rub Abdomen: Non-distended, soft, mild left lower quadrant tenderness no rebound ,bowel sounds present. 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 Labs: CBC, BMP 08/31/19 07:25 08/31/19 07:25 Assessment/Plan ASSESSMENT AND PLAN: 74-year-old female history of hypertension type 2 diabetes mellitus presented with nausea vomiting left lower quadrant pain work-up shows UTI and acute diverticulitis, improving on IV antibiotic, patient urine culture grew ESBL E. coli Active issues: 1.Acute uncomplicated diverticulitis: Able to pass flatus, no nausea vomiting will start clear liquid advance as tolerates, will DC ceftriaxone and metronidazole, switched to ertapenem for ESBL E. coli, ertapenem has good anaerobic coverage and no indication for metronidazole 2. Hypertension: Well-controlled continue all home medication. 3. UTI with sepsis: Urine culture grew E. coli, DC ceftriaxone switch to meropenem by ID day 2. 4. Type 2 diabetes mellitus: Hold p.o. medications follow-up Accu-Cheks and will add basal dose of insulin as indicated. hypercholesterolemia: continue atorvastatin. DVT prophylaxis
[2019-08-31 08:49] LABS: EOS % 5.8 % (0-4.5); HEMATOCRIT 30.1 % (32.4-45.2); HEMOGLOBIN 9.7 GM/dL (10.7-15.3); LYMPH % 26.4 % (8-40); MCH 28.2 pg (25.7-33.7); MCHC 32.2 g/dl (32.0-36.0); MEAN CELL VOLUME 87.7 fl (80-96); MEAN PLT VOLUME 8.1 fl (7.5-11.1); MONO % 8.4 % (3.8-10.2); NEUT % 58.4 % (42.8-82.8); PLATELET COUNT 236 K/MM3 (134-434); RBC 3.43 M/mm3 (3.60-5.2); RDW 15.9 % (11.6-15.6); WHITE BLOOD COUNT 5.5 K/mm3 (4.0-10.0)
[2019-08-31] MEDS ORDERED: DEXTROSE 5%-WATER 100 ML IVPB ONE ×2 (09:07→17:08)
[2019-08-31] MEDS ORDERED: MEROPENEM 1 GM VIAL (RESTRICTED TO ID) IVPB ONE ×2 (09:07→17:08)
[2019-08-31 09:08] LABS: BLOOD UREA NITROGEN 9.2 mg/dL (7-18); CREATININE 0.7 mg/dL (0.55-1.3)
[2019-08-31 09:09] LABS: CALCIUM 9.1 mg/dL (8.5-10.1); POTASSIUM 3.9 mmol/L (3.5-5.1)
[2019-08-31] MEDS: LOSARTAN POTASSIUM 50 MG TABLET (FP) PO SCH (09:13)
[2019-08-31] MEDS: ENOXAPARIN NA (PORCINE) 40 MG/0.4 ML DISP.SYRIN SQ SCH (09:13)
--- NOTE | 2019-08-31 12:25 | PN ---
Progress Note, Physician History of Present Illness: stable no new issues - Current Medication List Current Medications: Active Medications Atorvastatin Calcium (Lipitor -) 20 mg PO HS [facility] Last Admin: 08/30/19 21:39 Dose: 20 mg Documented by: Enoxaparin Sodium (Lovenox -) 40 mg SQ DAILY [facility] Last Admin: 08/31/19 09:13 Dose: 40 mg Documented by: Sodium Chloride (Normal Saline -) 1,000 mls @ 100 mls/hr IV ASDIR [facility] Last Admin: 08/31/19 05:48 Dose: 100 mls/hr Documented by: Meropenem 1 gm/ Dextrose 100 mls @ 200 mls/hr IVPB Q8H-IV [facility] Last Admin: 08/31/19 09:13 Dose: 200 mls/hr Documented by: Insulin Aspart (Novolog Vial Sliding Scale -) 1 vial SQ [facility]; Protocol Last Admin: 08/31/19 11:31 Dose: 2 units Documented by: Losartan Potassium (Cozaar -) 100 mg PO DAILY [facility] Last Admin: 08/31/19 09:13 Dose: 100 mg Documented by: - Objective Vital Signs: Vital Signs Temperature 98.8 F 08/31/19 06:00 Pulse Rate 69 08/31/19 06:00 Respiratory Rate 18 08/31/19 06:00 Blood Pressure 149/75 08/31/19 06:00 O2 Sat by Pulse Oximetry (%) 98 08/30/19 21:00 Constitutional: Yes: No Distress, Calm Cardiovascular: Yes: S1, S2 Respiratory: Yes: Regular, CTA Bilaterally Gastrointestinal: Yes: Normal Bowel Sounds, Soft Musculoskeletal: Yes: WNL Extremities: Yes: WNL Neurological: Yes: Alert, Oriented Psychiatric: Yes: Alert, Oriented Labs: CBC, BMP 08/31/19 07:25 08/31/19 07:25 Assessment/Plan 74 year old female with past medical history of IDDM, recurrent UTI, covid in April, HTN, HLD, RA and hysterectomy presented to the ED with upper to lower abdominal pain for 1 week, decreased appetite and nausea. sepsis diverticulitis dm htn uti plan meropenam monitor might hae to repeat ct scan rest as per team
[2019-08-31] MEDS: ATORVASTATIN CA 20 MG TABLET (FP) PO SCH (21:39)
[2019-09-01] MEDS ORDERED: MEROPENEM 1 GM VIAL (RESTRICTED TO ID) IVPB ONE ×3 (02:21→16:51)
[2019-09-01] MEDS ORDERED: DEXTROSE 5%-WATER 100 ML IVPB ONE ×3 (02:22→16:51)
[2019-09-01] MEDS: MEROPENEM 1 GM in DEXTROSE 5%-WATER 100 ML IVPB SCH ×4 (02:25→17:16)
[2019-09-01] MEDS: SODIUM CHLORIDE 1,000 ML IV SCH ×2 (04:46→17:16)
[2019-09-01] MEDS: INSULIN SLIDING SCALE (NOVOLOG) 1 VIAL SQ SCH ×3 (06:19→16:48)
--- NOTE | 2019-09-01 07:51 | PN ---
Teaching Attending Note Name of Resident: Reba Velazquez ATTENDING PHYSICIAN STATEMENT I saw and evaluated the patient. I reviewed the resident's note and discussed the case with the resident. I agree with the resident's findings and plan as documented. SUBJECTIVE: OBJECTIVE: Vital Signs Temperature 98 F 09/01/19 06:00 Pulse Rate 67 09/01/19 06:00 Respiratory Rate 18 09/01/19 06:00 Blood Pressure 144/76 09/01/19 06:00 O2 Sat by Pulse Oximetry (%) 98 08/31/19 21:00 General: Elderly woman, comfortable, not in distress HEENT mucous membranes moist, mild anemia, no jaundice, PERRLA, no nystagmus Neck: No JVD, supple, no bruit, thyroid palpably normal, normal carotid pulsat ions. Chest: Nontender, clear to auscultation bilaterally. CVS: S1-S2 regular no murmur/gallop/rub Abdomen: Non-distended, soft, mild left lower quadrant tenderness no rebound ,bowel sounds present. 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 ASSESSMENT AND PLAN: 74-year-old female history of hypertension type 2 diabetes mellitus presented with nausea vomiting left lower quadrant pain work-up shows UTI and acute diverticulitis, improving on IV antibiotic, patient urine culture grew ESBL E. coli Active issues: 1.Acute uncomplicated diverticulitis: Able to pass flatus, no nausea vomiting will start clear liquid advance as tolerates, will DC ceftriaxone and metronidazole, switched to ertapenem for ESBL E. coli, on meropenem as per ID 2. Hypertension: Well-controlled continue all home medication. 3. UTI with sepsis: Urine culture grew E. coli, DC ceftriaxone switch to meropenem by ID day 2. 4. Type 2 diabetes mellitus: Hold p.o. medications follow-up Accu-Cheks and will add basal dose of insulin as indicated. hypercholesterolemia: continue atorvastatin. DVT prophylaxis
[2019-09-01 08:52] LABS: BASO % 0.9 % (0-2.0); EOS % 6.3 % (0-4.5); HEMATOCRIT 31.1 % (32.4-45.2); HEMOGLOBIN 10.1 GM/dL (10.7-15.3); LYMPH % 28.6 % (8-40); MCH 28.5 pg (25.7-33.7); MCHC 32.6 g/dl (32.0-36.0); MEAN CELL VOLUME 87.6 fl (80-96); MEAN PLT VOLUME 7.6 fl (7.5-11.1); MONO % 8.8 % (3.8-10.2); NEUT % 55.4 % (42.8-82.8); PLATELET COUNT 248 K/MM3 (134-434); RBC 3.55 M/mm3 (3.60-5.2); RDW 15.6 % (11.6-15.6); WHITE BLOOD COUNT 5.5 K/mm3 (4.0-10.0)
[2019-09-01 09:07] LABS: BLOOD UREA NITROGEN 11.4 mg/dL (7-18); CREATININE 0.8 mg/dL (0.55-1.3)
[2019-09-01 09:08] LABS: CALCIUM 9.1 mg/dL (8.5-10.1)
[2019-09-01] MEDS: LOSARTAN POTASSIUM 50 MG TABLET (FP) PO SCH (09:41)
[2019-09-01] MEDS: ENOXAPARIN NA (PORCINE) 40 MG/0.4 ML DISP.SYRIN SQ SCH (09:42)
--- NOTE | 2019-09-01 12:20 | PN ---
Progress Note, Physician History of Present Illness: stable feeling well no new issues tolerating diet - Current Medication List Current Medications: Active Medications Atorvastatin Calcium (Lipitor -) 20 mg PO HS [facility] Last Admin: 08/31/19 21:39 Dose: 20 mg Documented by: Enoxaparin Sodium (Lovenox -) 40 mg SQ DAILY [facility] Last Admin: 09/01/19 09:42 Dose: Not Given Documented by: Sodium Chloride (Normal Saline -) 1,000 mls @ 100 mls/hr IV ASDIR [facility] Last Admin: 09/01/19 04:46 Dose: 100 mls/hr Documented by: Meropenem 1 gm/ Dextrose 100 mls @ 200 mls/hr IVPB Q8H-IV [facility] Last Admin: 09/01/19 09:41 Dose: 200 mls/hr Documented by: Insulin Aspart (Novolog Vial Sliding Scale -) 1 vial SQ [facility]; Protocol Last Admin: 09/01/19 06:19 Dose: 2 units Documented by: Losartan Potassium (Cozaar -) 100 mg PO DAILY [facility] Last Admin: 09/01/19 09:41 Dose: 100 mg Documented by: - Objective Vital Signs: Vital Signs Temperature 98.9 F 09/01/19 10:00 Pulse Rate 76 09/01/19 10:00 Respiratory Rate 18 09/01/19 10:00 Blood Pressure 149/91 09/01/19 10:00 O2 Sat by Pulse Oximetry (%) 98 09/01/19 09:00 Constitutional: Yes: No Distress, Calm Cardiovascular: Yes: S1, S2 Respiratory: Yes: Regular, CTA Bilaterally Gastrointestinal: Yes: Normal Bowel Sounds, Soft Musculoskeletal: Yes: WNL Extremities: Yes: WNL Neurological: Yes: Alert, Oriented Psychiatric: Yes: Alert, Oriented Labs: CBC, BMP 09/01/19 08:21 09/01/19 08:21 Assessment/Plan 74 year old female with past medical history of IDDM, recurrent UTI, covid in April, HTN, HLD, RA and hysterectomy presented to the ED with upper to lower abdominal pain for 1 week, decreased appetite and nausea. sepsis diverticulitis dm htn uti plan can change to ertapenam daily on discharge for rest of the course rest as per he team
--- NOTE | 2019-09-01 14:19 | DS ---
Physical Exam: SUBJECTIVE: Patient seen and examined. No acute events overnight. OBJECTIVE: Vital Signs Temperature 98.9 F 09/01/19 10:00 Pulse Rate 76 09/01/19 10:00 Respiratory Rate 18 09/01/19 10:00 Blood Pressure 149/91 09/01/19 10:00 O2 Sat by Pulse Oximetry (%) 98 09/01/19 09:00 PHYSICAL EXAM GENERAL: The patient is awake, alert, and fully oriented, in no acute distress. HEAD: Normal with no signs of trauma. EYES: PERRLA, EOMI, sclera anicteric, conjunctiva clear. ENT: moist mucous membranes. NECK: supple. LUNGS: Breath sounds equal, clear to auscultation bilaterally HEART: Regular rate and rhythm, S1, S2 ABDOMEN: Soft, nontender, nondistended, normoactive bowel sounds. EXTREMITIES: 2+ pulses, warm, well-perfused, no edema. SKIN: Warm, dry, normal turgor LABS Laboratory Results - last 24 hr 08/31/19 08/31/19 09/01/19 17:14 21:38 06:15 WBC RBC Hgb Hct MCV MCH MCHC RDW Plt Count MPV Absolute Neuts (auto) Neutrophils % Lymphocytes % Monocytes % Eosinophils % Basophils % Nucleated RBC % Sodium Potassium Chloride Carbon Dioxide Anion Gap BUN Creatinine Est GFR (CKD-EPI)AfAm Est GFR (CKD-EPI)NonAf POC Glucometer 123 180 156 Random Glucose Calcium 09/01/19 09/01/19 08:21 08:21 WBC 5.5 RBC 3.55 L Hgb 10.1 L Hct 31.1 L MCV 87.6 MCH 28.5 MCHC 32.6 RDW 15.6 Plt Count 248 MPV 7.6 Absolute Neuts (auto) 3.1 Neutrophils % 55.4 Lymphocytes % 28.6 Monocytes % 8.8 Eosinophils % 6.3 H Basophils % 0.9 Nucleated RBC % 0 Sodium 142 Potassium 4.0 Chloride 108 H Carbon Dioxide 27 Anion Gap 6 L BUN 11.4 Creatinine 0.8 Est GFR (CKD-EPI)AfAm 84.77 Est GFR (CKD-EPI)NonAf 73.14 POC Glucometer Random Glucose 143 H Calcium 9.1 HOSPITAL COURSE: Date of Admission:08/28/19 Date of Discharge: 09/01/19 Patient is a 74 year old female with a PMH of HTN, T2DM, HLD and recurrent UTIs who presented to the ED for nausea/vomiting and left lower quadrant pain. Her lactic acid was markedly elevated, she had low grade fever, leukocytosis and tachycardia, with suspicion for sepsis. She was admitted to the med-surgical floor. Her abdominal CT showed strong evidence of diverticulitis, she was put on bowel rest and was started on empiric ceftriaxone/metronidazole to treat her diverticulitis. A urine culture was taken in the ED and showed growth of ESBL E. Coli, including CFU above 100,000. Of note, her blood cultures have come back negative over 72 hours. Infectious disease specialist, was consulted and then switched her antibiotics to meropenem, after culture and sensitivity was done. Patient continued to improve throughout hospital stay and was able to tolerate regular diet. She is day 3 of her ten day antibiotic course for ESBL bacteriuria. She had placement of a PICC line by our interventional radiologist prior to discharge to receive daily home infusions of ertapenem 1 gm for 7 more days. Minutes to complete discharge: 38 Discharge Summary Problems reviewed: Yes Reason For Visit: UTI DIVERTICULITIS Current Active Problems Abdominal pain (Acute) Acute diverticulitis (Acute) UTI (urinary tract infection) (Acute) Condition: Improved - Instructions Diet, Activity, Other Instructions: Your visit You were admitted to the hospital because you had belly pain. cAT scan of your belly was done which revealed that you had an infection in your bowels. You were given IV antibiotics and IV fluids and your belly pain improved. Please follow up with your architectural design professor for further management. You may need to have a repeat colonoscopy in a few weeks. You were also noted to have a urinary tract infection. You will be sent home with an IV line so you can receive IV antibiotics at home. Medications Please take the following medications as prescribed: 1. Ertapenem 1gm daily for 12 more days starting tomorrow. Please continue your other home medications. Follow up Please follow up with your primary care provider in 1 week. Please follow up with the architectural design professor (Dr. Mccoy) in 1-2 weeks. Additional info Please call 911 or go to the ED if with any worsening fevers, chills, headache, dizziness, chest pain, shortness of breath, belly pain, diarrhea, or any new concerns noted. Referrals: Adilia Mccoy MD [Staff Physician] - Magaly Medina MD [Primary Care Provider] - Disposition: HOME - Home Medications Comprehensive Discharge Medication List: Ambulatory Orders Losartan Potassium 100 mg PO DAILY 09/07/17 Omega3,5,6,7,9 No.1/[place] Oil [Complete [place] Softgel] 1 each PO DAILY 09/07/17 Sitagliptin Phos/Metformin HCl [Janumet Xr 50-1,000 mg Tablet] 1 each PO BID 09/07/17 Atorvastatin Ca [Lipitor] 20 mg PO DAILY 10/26/17 Glyburide 5 mg PO DAILY 10/26/17 Aspirin [ASA -] 81 mg PO DAILY 08/28/19 Ertapenem Sodium - 1 Gram [Invanz (Pre-Docked)] 1 gm IVPB DAILY 7 Days bag 09/01/19 This patient is new to me today: No Emergency Visit: Yes ED Registration Date: 08/28/19 Care time: The patient presented to the Emergency Department on the above date and was hospitalized for further evaluation of their emergent condition. Critical Care patient: No - Discharge Referral Referred to [facility] Med [facility].C[facility] No ATTENDING PHYSICIAN STATEMENT I saw and evaluated the patient. I reviewed the resident's note and discussed the case with the resident. I agree with the resident's findings and plan as documented. SUBJECTIVE: OBJECTIVE: ASSESSMENT AND PLAN:
[2019-09-01 17:55] VITALS: BP 157/91; PULSE 74; TEMP 98.6
== END 2019-09-01 18:18 | disposition home or self-care (01) | DRG 872 ==
LOC: SUPCPDRO 09:08 → JER 09:08 → JERBED 16:31 → J5S 23:12
PROVIDERS: ADMIT Internal Medicine; ATTEND Internal Medicine
PROC: 02HV33Z Insertion of Infusion Device into Superior Vena Cava, Percutaneous Approach (ICD-10-PCS; principal; 2019-09-01)
PROC: B548ZZA Ultrasonography of Superior Vena Cava, Guidance (ICD-10-PCS; 2019-09-01)
DX: A41.9 Sepsis, unspecified organism (principal); N39.0 Urinary tract infection, site not specified; K57.32 Diverticulitis of large intestine without perforation or abscess without bleeding; E87.2 Acidosis; I10 Essential (primary) hypertension; E78.5 Hyperlipidemia, unspecified; K59.00 Constipation, unspecified; N28.1 Cyst of kidney, acquired; Z79.84 Long term (current) use of oral hypoglycemic drugs; B96.20 Unspecified Escherichia coli [E. coli] as the cause of diseases classified elsewhere; E11.40 Type 2 diabetes mellitus with diabetic neuropathy, unspecified
CPT/HCPCS: 36415; 36569; 74177-TC; 77001-TC-FY; 80048; 80053; 81003; 82962; 83036; 83605; 83690; 83735; 84100; 85025; 87040; 87086; 87186; 93005; 93010; 99285-25; C1751; J0131; Q9967; U0003

== ENCOUNTER 2020-03-26 13:00 | Inpatient (IN) | payer OTHER ==
[2020-03-26] MEDS ORDERED: SODIUM CHLORIDE 1,000 ML IV STA (14:10)
[2020-03-26 15:45] LABS: BASO % 0.5 % (0-2.0); EOS % 1.3 % (0-4.5); HEMOGLOBIN 10.4 GM/dL (10.7-15.3); LYMPH % 20.6 % (8-40); MCH 27.8 pg (25.7-33.7); MCHC 32.5 g/dl (32.0-36.0); MEAN CELL VOLUME 85.6 fl (80-96); MEAN PLT VOLUME 8.8 fl (7.5-11.1); MONO % 9.3 % (3.8-10.2); NEUT % 68.3 % (42.8-82.8); PLATELET COUNT 228 K/MM3 (134-434); RBC 3.73 M/mm3 (3.60-5.2); RDW 16.3 % (11.6-15.6); WHITE BLOOD COUNT 9.7 K/mm3 (4.0-10.0)
[2020-03-26 15:59] LABS: INR 0.92 (0.83-1.09); PROTHROMBIN TIME (PATIENT) 11.4 SEC (9.7-13.0)
[2020-03-26 16:02] LABS: ACTIVATED PTT 28.2 SECONDS (25.2-36.5)
[2020-03-26 16:06] LABS: POTASSIUM 4.2 mmol/L (3.5-5.1)
[2020-03-26 16:10] LABS: CALCIUM 9.7 mg/dL (8.5-10.1)
[2020-03-26 16:11] LABS: ALBUMIN 3.8 g/dl (3.4-5.0); BLOOD UREA NITROGEN 17.6 mg/dL (7-18)
[2020-03-26 16:14] LABS: CREATININE 0.8 mg/dL (0.55-1.3)
[2020-03-26 16:15] LABS: BILIRUBIN,TOTAL 0.4 mg/dL (0.2-1); TOT PROT 7.5 g/dl (6.4-8.2)
[2020-03-26 16:38] LABS: EPI CELLS 2 /uL (0-25.1); HYALINE CASTS 0 /uL (0-3.1); URINE APPEARANCE CLEAR; URINE BACTERIA 184 /uL (0-1359); URINE BILIRUBIN NEGATIVE (NEGATIVE); URINE COLOR YELLOW; URINE GLUCOSE (UA) NEGATIVE (NEGATIVE); URINE KETONE NEGATIVE (NEGATIVE); URINE LEUK ESTERASE 1+ (NEGATIVE); URINE NITRITE NEGATIVE (NEGATIVE); URINE PROTEIN NEGATIVE (NEGATIVE); URINE UROBILINOGEN 0.2 mg/dL (0.2-1.0); URINE WBC 142 /uL (0-25.8)
[2020-03-26] MEDS ORDERED: CEFTRIAXONE 1,000 MG in DEXTROSE 5%-WATER - 50 ML IVPB ONE (17:45)
[2020-03-26] MEDS ORDERED: SODIUM CHLORIDE 500 ML IV STA (18:31)
[2020-03-26] MEDS ORDERED: CEFTRIAXONE 1 GM/50 ML BAG ONE (18:39)
[2020-03-26] MEDS ORDERED: ERTAPENEM SODIUM 1 GM in SODIUM CHLORIDE 50 ML IVPB ONE (18:49)
[2020-03-26] MEDS ORDERED: ERTAPENEM SODIUM 1 GM VIAL ONE (18:51)
[2020-03-26 18:53] LABS: URINE RBC 72.3 /uL (0-23.9)
[2020-03-26] MEDS ORDERED: ACETAMINOPHEN 1000 MG/100 ML VIAL (NON FORMULARY) IVPB PRN (20:25)
[2020-03-26] MEDS: SODIUM CHLORIDE 1,000 ML IV SCH (22:11)
[2020-03-26] MEDS: INSULIN SLIDING SCALE (NOVOLOG) 1 VIAL SQ SCH (22:14)
[2020-03-27] MEDS: SODIUM CHLORIDE 1,000 ML IV SCH ×2 (06:09→23:11)
[2020-03-27] MEDS: INSULIN SLIDING SCALE (NOVOLOG) 1 VIAL SQ SCH ×4 (06:09→21:51)
[2020-03-27 09:17] LABS: BASO % 0.7 % (0-2.0); EOS % 3.4 % (0-4.5); HEMATOCRIT 31.8 % (32.4-45.2); HEMOGLOBIN 10.4 GM/dL (10.7-15.3); LYMPH % 29.9 % (8-40); MCHC 32.6 g/dl (32.0-36.0); MEAN CELL VOLUME 85.8 fl (80-96); MEAN PLT VOLUME 8.8 fl (7.5-11.1); MONO % 7.5 % (3.8-10.2); NEUT % 58.5 % (42.8-82.8); PLATELET COUNT 221 K/MM3 (134-434); RBC 3.71 M/mm3 (3.60-5.2); WHITE BLOOD COUNT 7.9 K/mm3 (4.0-10.0)
[2020-03-27] MEDS ORDERED: ERTAPENEM SODIUM 1 GM VIAL ONE (09:19)
[2020-03-27] MEDS ORDERED: SODIUM CHLORIDE 50 ML IVPB ONE (09:19)
[2020-03-27 09:36] LABS: POTASSIUM 4.2 mmol/L (3.5-5.1)
[2020-03-27 09:43] LABS: ALBUMIN 3.6 g/dl (3.4-5.0)
[2020-03-27 09:44] LABS: BLOOD UREA NITROGEN 9.7 mg/dL (7-18)
[2020-03-27 09:48] LABS: MAGNESIUM 1.8 mg/dL (1.8-2.4)
[2020-03-27 09:49] LABS: CALCIUM 8.6 mg/dL (8.5-10.1)
[2020-03-27 09:51] LABS: BILIRUBIN,TOTAL 0.4 mg/dL (0.2-1); TOT PROT 6.9 g/dl (6.4-8.2)
[2020-03-27 09:52] LABS: PHOSPHOROUS 3.6 mg/dL (2.5-4.9)
[2020-03-27 09:53] LABS: CREATININE 0.8 mg/dL (0.55-1.3)
[2020-03-27] MEDS: ENOXAPARIN NA (PORCINE) 40 MG/0.4 ML DISP.SYRIN SQ SCH (10:55)
[2020-03-27] MEDS: ERTAPENEM SODIUM 1 GM in SODIUM CHLORIDE 50 ML IVPB SCH (10:55)
[2020-03-28] MEDS: INSULIN SLIDING SCALE (NOVOLOG) 1 VIAL SQ SCH ×2 (07:02→12:01)
[2020-03-28] MEDS ORDERED: ERTAPENEM SODIUM 1 GM VIAL ONE (08:24)
[2020-03-28] MEDS ORDERED: SODIUM CHLORIDE 50 ML IVPB ONE (08:24)
[2020-03-28 08:31] LABS: HEMATOCRIT 29.6 % (32.4-45.2); HEMOGLOBIN 9.8 GM/dL (10.7-15.3); MCHC 33.1 g/dl (32.0-36.0); MEAN CELL VOLUME 84.7 fl (80-96); MEAN PLT VOLUME 8.7 fl (7.5-11.1); PLATELET COUNT 200 K/MM3 (134-434); WHITE BLOOD COUNT 6.6 K/mm3 (4.0-10.0)
[2020-03-28 08:42] LABS: ALBUMIN 3.3 g/dl (3.4-5.0); CALCIUM 9.1 mg/dL (8.5-10.1)
[2020-03-28 08:43] LABS: BLOOD UREA NITROGEN 10.9 mg/dL (7-18); MAGNESIUM 1.9 mg/dL (1.8-2.4)
[2020-03-28 08:44] LABS: CREATININE 0.7 mg/dL (0.55-1.3)
[2020-03-28 08:45] LABS: BILIRUBIN,TOTAL 0.5 mg/dL (0.2-1); PHOSPHOROUS 3.7 mg/dL (2.5-4.9)
[2020-03-28 08:46] LABS: TOT PROT 6.4 g/dl (6.4-8.2)
[2020-03-28] MEDS ORDERED: ACETAMINOPHEN 325 MG TABLET (FP) PO PRN (09:22)
[2020-03-28] MEDS: ERTAPENEM SODIUM 1 GM in SODIUM CHLORIDE 50 ML IVPB SCH (09:45)
[2020-03-28] MEDS: ENOXAPARIN NA (PORCINE) 40 MG/0.4 ML DISP.SYRIN SQ SCH (09:46)
[2020-03-28 10:03] VITALS: BP 140/89; PULSE 73; TEMP 98.5
[2020-03-28 11:08] VITALS: BMI 25.1
== END 2020-03-28 14:09 | disposition home or self-care (01) | DRG 392 ==
LOC: JER 13:00 → JERBED 17:50 → J7W 19:50
PROVIDERS: ADMIT Hospitalist; ATTEND Student in an Organized Health Care Education/Training Program
DX: K57.32 Diverticulitis of large intestine without perforation or abscess without bleeding (principal); E87.2 Acidosis; N39.0 Urinary tract infection, site not specified; E78.5 Hyperlipidemia, unspecified; M06.9 Rheumatoid arthritis, unspecified; I10 Essential (primary) hypertension; E11.40 Type 2 diabetes mellitus with diabetic neuropathy, unspecified; D64.9 Anemia, unspecified; B96.20 Unspecified Escherichia coli [E. coli] as the cause of diseases classified elsewhere
CPT/HCPCS: 36415; 74177-TC; 80053; 81003; 82962; 83605; 83690; 83735; 84100; 85025; 85027; 85610; 85730; 86850; 86900; 86901; 87086; 87186; 93005; 93010; 99285-25; C9803; J0131; Q9967; U0003

== ENCOUNTER 2020-07-02 08:31 | Day surgery (SDC) | payer OTHER ==
[2020-07-02 11:39] VITALS: BMI 24.7
[2020-07-02 12:52] VITALS: TEMP 98.4
[2020-07-02 13:48] VITALS: BP 111/72; PULSE 60
== END 2020-07-02 13:54 | disposition home or self-care (01) ==
LOC: JASU-ENDO 08:31
PROVIDERS: ATTEND Internal Medicine Gastroenterology
PROC: 0DJD8ZZ Inspection of Lower Intestinal Tract, Via Natural or Artificial Opening Endoscopic (ICD-10-PCS; principal; 2020-07-02 10:00)
DX: Z12.11 Encounter for screening for malignant neoplasm of colon (principal); K57.80 Diverticulitis of intestine, part unspecified, with perforation and abscess without bleeding; K57.30 Diverticulosis of large intestine without perforation or abscess without bleeding; K64.8 Other hemorrhoids
CPT/HCPCS: 82962; C9803; U0003; U0005